=== PATIENT | female | born 1955 | race African-American/Black ===

== ENCOUNTER → 2022-07-22 | Outpatient (CLI) | payer MEDICARE, OTHER ==
[~2022-07-22] MED LIST: LEXISCAN IV ONE
--- NOTE | 2022-07-22 21:27 | PCM.ECHO ---
APPROVED REPORT EXAM: Comprehensive 2D, Doppler, and color-flow Echocardiogram. Patient Location: OUT-PATIENT Indications Dyspnea Atrial Fibrillation Congestive Heart Failure 2D Dimensions LVOT Diameter 2.08 (1.8-2.4cm) LVEF(%) 49.49 (>50%) M-Mode Dimensions RVDd 1.30 (2.1-3.2cm) Left Atrium(MM) 4.45 (2.5-4.0cm) IVSd 2.15 (0.7-1.1cm) Aortic Root 2.60 (2.2-3.7cm) LVDd 5.10 (4.0-5.6cm) Aortic Cusp Exc 1.60 (1.5-2.0cm) PWd 0.90 (0.7-1.1cm) MV EPSS 0.58 (<0.5cm) IVSs 2.40 cm FS (%) 18.75 % LVDs 4.15 (2.0-3.8cm) ESV(Teich) 76.53 ml PWs 1.30 cm LVEF(%) 38.59 (>50%) Volumes Biplane 2D LV Volumes Biplane 2D LA Volumes LVEDv A4C 138.87 mL LA ESV Index LVESv A4C 70.59 mL Aortic Valve AoV Peak Rosales. 1.25 m/s AoV VTI 23.95 cm AO Peak GR. 6.40 mmHg AO Mean GR. 4.10 mmHg LVOT VTI 16.82 cm LVOT Peak Rosales. 0.84 m/s SAÚL(VTI)/BSA 2.37 cm2/m2 SAÚL (VTI) 2.37 cm2 Mitral Valve MV E Velocity 0.70m/s MR Peak Gr. 16.45mmHg MV A Velocity 0.45m/s Pulmonary Valve PV Peak Velocity 0.80m/s PV Peak Grad. 2.60mmHg RVOT VTI 16.50cm Tricuspid Valve TR P. Velocity 1.00m/s RAP ESTIMATE 10.00mmHg TR Peak Gr. 4.24mmHg RVSP 14.24mmHg LEFT VENTRICLE The left ventricle is normal size. Left ventricular systolic function is moderately decreased. Severe concentric left ventricular hypertrophy. There is global hypokinesis of the left ventricle. There is no ventricular septal defect visualized. No left ventricle thrombus noted on this study. LVEF is 40-45%. RIGHT VENTRICLE The right ventricle is normal size. Right ventricle is moderately hypokinetic. There is normal right ventricular wall thickness. ATRIA Left atrium is severely dilated. Right atrium is moderately dilated. The interatrial septum is intact with no evidence for an atrial septal defect. AORTIC VALVE The aortic valve is normal in structure. There is no aortic valvular stenosis. No aortic regurgitation is present. There is no aortic valvular vegetation. MITRAL VALVE The mitral valve is normal in structure. There is no mitral valve stenosis. Mild mitral regurgitation. There is no evidence of mitral valve vegetations. TRICUSPID VALVE The tricuspid valve is normal in structure. There is no tricuspid valve stenosis. Mild tricuspid regurgitation. There is no tricuspid valve vegetations. PULMONIC VALVE Pulmonic valve is not well visualized. There is no pulmonic valvular stenosis. There is no pulmonic valvular regurgitation. GREAT VESSELS The aortic root is normal in size. Pulmonary artery is not well visualized. Aortic arch is not well visualized. The IVC is normal in size and collapses >50% with inspiration. PERICARDIUM There is no pericardial effusion. There is no pleural effusion. Other Information Study Quality: Fair <Conclusion> Left ventricular systolic function is moderately decreased. LVEF is 40-45%. There is global hypokinesis of the left ventricle. Severe concentric left ventricular hypertrophy. Left atrium is severely dilated. Right atrium is moderately dilated. Mild mitral regurgitation. Mild tricuspid regurgitation. Electronically signed by : GABRIELA FOSTER. 07/22/2022 21:26:42
--- NOTE | 2022-07-23 00:51 | STRESS ---
DATE OF SERVICE: 07/22/2022 DICTATOR NAME: GABRIELA FOSTER CARDIAC STRESS TEST INDICATION: Chest pain. FINDINGS: Baseline EKG shows atrial fibrillation with controlled ventricular response with poor R-wave progression, cannot exclude an anteroseptal infarct. Stress EKG shows atrial fibrillation, unchanged from baseline. At the end of recovery, EKG shows atrial fibrillation, unchanged from baseline with premature ventricular complexes. Baseline heart rate is noted to be 62 beats per minute and mario to 79 beats per minute during stress. At the end of recovery, the heart rate was 81 beats per minute. Baseline blood pressure is 135/83 and remained the same during stress. At the end of recovery, the blood pressure was 144/82. Blood pressure and heart rate were appropriate for stress. There were no significant symptoms noted during stress. Baseline atrial fibrillation was noted at rest and throughout stress and recovery. Premature ventricular complexes were noted at recovery. EKG portion of stress test was negative for myocardial ischemia. Nuclear images were obtained with a rest dose of 11.9 mCi technetium 99 sestamibi and stress dose of 33.6 mCi technetium 99 sestamibi. Nuclear images reveal a large area of reversible perfusion defect involving the anterior wall suggestive of myocardial ischemia. There is also a large area of fixed perfusion defect involving the inferior wall suggestive of myocardial infarction. Left ventricular ejection fraction is 42%. EDV is 82 mL, ESV is 48 mL. The left ventricle is normal in size. Gated motion images shows moderate global hypokinesis of the left ventricle. TID is 1.2. There is no evidence of diaphragmatic attenuation artifact. IMPRESSION: * There is a large area of reversible perfusion defect involving the anterior wall suggestive of myocardial ischemia. * There is a large area of fixed perfusion defect involving the inferior wall suggestive of myocardial infarction. * Left ventricular ejection fraction is 42%. * Moderate global hypokinesis of the left ventricle is visualized. * This is an abnormal study. Recommend left heart catheterization. Amanda SLATER D.O. DR: OKSANA/IONA TID: [id number] RECEIPT: [id number]
== END | disposition home or self-care (01) ==
LOC: RAD 10:35
PROVIDERS: ATTEND Internal Medicine Interventional Cardiology
DX: I08.1 Rheumatic disorders of both mitral and tricuspid valves (principal); I48.91 Unspecified atrial fibrillation; R06.02 Shortness of breath; I50.9 Heart failure, unspecified
CPT/HCPCS: 78452; 93306; 93017; J2785; A9500

== ENCOUNTER → 2022-08-11 | Day surgery (SDC) | payer MEDICARE, OTHER ==
[~2022-08-11] VITALS: Ht 157.5 cm; Wt 72.6 kg
[2022-08-11] VITALS (10 sets, daily range): BP systolic 114–141; BP diastolic 49–77
[~2022-08-11] MED LIST changes: +ASCO500C PO; +ATOR80TA PO; +ISOS30TA73 PO; -LEXISCAN IV ONE; +MAGN250T3 PO; +METO25TA4 PO; +NS 1000ML 1,000 ML IV SCH; +PARO20TA4 PO; +PNV1TABL82 PO; +POTA10CA2 PO; +RIVA20TA PO; +SUBLIMAZE ONE; +TRIA1CAP7 PO; +VERSED ONE; +[UNRECOGNIZED DRUG - CODE] PO
--- NOTE | 2022-08-11 15:56 | [facility] ---
DATE OF SERVICE: 08/11/2022 DICTATOR NAME: GABRIELA FOSTER DO INDICATIONS: Abnormal cardiac ischemic workup. This is a 67-year-old female who was evaluated in the outpatient setting where she underwent cardiac ischemic workup that was noted to be abnormal. She was then set up for left heart catheterization after informed consent were obtained. PROCEDURES PERFORMED: * Selective coronary angiography. * Left ventriculography. * Hemostasis established using a 6-Japanese MynxGrip. DESCRIPTION OF PROCEDURE: Access was obtained using a 4-Japanese micropuncture sheath to cannulate the right common femoral artery. The 4-Japanese sheath was upsized to a 6-Japanese regular short sheath. Diagnostic angiography was then carried out using the Tuyet left catheter to engage the left main artery. The left main artery was noted to be angiographically normal. It trifurcates into left anterior descending artery, ramus intermedius artery and the left circumflex artery. The left anterior descending artery is noted to have mild luminal irregularities. It runs in the interventricular groove, wrapping around the apex to form a type 3 LAD. It gives rise to 3 diagonal branches that are noted to have mild luminal irregularities. The ramus intermedius artery is a small caliber vessel with mild luminal irregularities. The left circumflex artery is noted to be codominant and with mild luminal irregularities. It gives rise to 2 obtuse marginal branches that are noted to have mild luminal irregularities. The first obtuse marginal branch is a tortuous vessel. The Tuyet left catheter was then exchanged for a Tuyet right catheter, which was used to engage the RCA. RCA angiography revealed a dominant RCA with mild luminal irregularities. The RCA bifurcates distally to a right posterior descending artery and a right posterolateral artery. Both vessels are small caliber vessels and with mild luminal irregularities. The Tuyet right catheter was then exchanged for a pigtail catheter, which was used to cross the aortic valve into the left ventricle. Left ventriculography was performed. LVEF was noted to be 40%-45%. LVEDP was noted to be 14. Upon pullback of the pigtail catheter, there was no gradient across the aortic valve. The pigtail catheter was then taken out and hemostasis was established using a 6-Japanese MynxGrip. The patient left the labor commissioner in stable condition and there were no complications. IMPRESSION: * Nonobstructive coronary artery disease. * Nonischemic cardiomyopathy. * Selective coronary angiography. * Left ventriculography. * Left ventricular ejection fraction of 40%-45%. * Left ventricular end-diastolic pressure of 14. * Hemostasis established using a 6-Japanese MynxGrip. RECOMMENDATIONS: No coronary intervention is necessary at this time. Lifestyle modification factors have been strongly advised. The patient will be discharged home today to follow up with me in the office in 2 weeks. Amanda SLATER D.O. DR: REBEKA TID: [id number] RECEIPT: [id number]
== END | disposition home or self-care (01) ==
LOC: SDC 07:05
PROVIDERS: ATTEND Internal Medicine Interventional Cardiology
DX: R94.39 Abnormal result of other cardiovascular function study (principal); I25.10 Atherosclerotic heart disease of native coronary artery without angina pectoris; I42.8 Other cardiomyopathies; I11.0 Hypertensive heart disease with heart failure; I50.9 Heart failure, unspecified; E66.3 Overweight; F12.90 Cannabis use, unspecified, uncomplicated; F10.90 Alcohol use, unspecified, uncomplicated; Z68.29 Body mass index [BMI] 29.0-29.9, adult; Z98.890 Other specified postprocedural states; Z82.49 Family history of ischemic heart disease and other diseases of the circulatory system; Z83.3 Family history of diabetes mellitus; Z82.5 Family history of asthma and other chronic lower respiratory diseases; Z87.891 Personal history of nicotine dependence; Z88.2 Allergy status to sulfonamides; Z88.1 Allergy status to other antibiotic agents; Z79.01 Long term (current) use of anticoagulants; Z79.899 Other long term (current) drug therapy
CPT/HCPCS: 93458; 99152; J1644; C1894 ×2; J2250; J3010; C1769; Q9967

== ENCOUNTER → 2022-08-11 | Outpatient (CLI) | payer MEDICARE, OTHER ==
[~2022-08-11] MED LIST changes: +NS 1000ML 1,000 ML ONE; -SUBLIMAZE ONE; -VERSED ONE
[2022-08-11 08:08] LABS: BASOPHIL % 0.3 % (0.0-0.2); EOSINOPHIL # 0.1 10^3/uL (0.0-0.2); EOSINOPHIL % 1.7 % (0.0-5.0); LYMPHOCYTES # 1.29 10^3/uL1 (1.0-4.8); LYMPHOCYTES % 18.7 % (24.0-44.0); MEAN CORP HGB 28.8 pg (26-34); MONOCYTES # 0.5 10^3/uL (0.3-0.8); MONOCYTES % 6.5 % (5.0-12.0); NEUTROPHILS % 72.7 % (41.0-85.0); PLATELET COUNT 251 10^3/uL (150-400); RED CELL DISTRIBUTION WIDTH 14.7 % (11.5-14.5)
[2022-08-11 08:20] LABS: CARBON DIOXIDE 28.4 mmol/L (20.0-32)
== END | disposition home or self-care (01) ==
LOC: LAB 08:00 → EDSTATUS 10:00
PROVIDERS: ATTEND Internal Medicine Interventional Cardiology
DX: R94.39 Abnormal result of other cardiovascular function study (principal); Z53.8 Procedure and treatment not carried out for other reasons; Z79.01 Long term (current) use of anticoagulants
CPT/HCPCS: 80053; 85025; 85730; 85610; 36415; J7030

== ENCOUNTER → 2023-07-26 | Outpatient (CLI) | payer MEDICARE, OTHER ==
[~2023-07-26] MED LIST changes: -NS 1000ML 1,000 ML IV SCH; -NS 1000ML 1,000 ML ONE; -POTA10CA2 PO; +POTA10CA76 PO
== END | disposition home or self-care (01) ==
LOC: RAD 13:06
PROVIDERS: ATTEND Nurse Practitioner Family
DX: I08.8 Other rheumatic multiple valve diseases (principal); I42.0 Dilated cardiomyopathy; I50.9 Heart failure, unspecified
CPT/HCPCS: 93306